=== PATIENT | male | born 1965 | race Caucasian/White ===

== ENCOUNTER 2017-05-16 10:07 | Inpatient (IN) | payer SELFPAY ==
[~2017-05-16] VITALS: Ht 182.9 cm; Wt 67.6 kg
[2017-05-16 10:11] VITALS: BP 127/84
[2017-05-16] MEDS ORDERED: POTA10TE30 PO (10:16)
[2017-05-16] MEDS ORDERED: ATEN25TA7 PO (10:16)
[2017-05-16] MEDS ORDERED: VITB12 PO (10:16)
--- NOTE | 2017-05-16 10:22 | NUR ---
PT AMBULATED TO BED 4.
--- NOTE | 2017-05-16 10:24 | NUR ---
51M BIB SELF C/O BL LOWER ABD PAIN, PRESSURE, NON-RADIATING, 7/10 X 2 DAYS, WORSENING X TODAY; ABDOMEN ROUND, DISTENDED, FIRM, TENDER, ACTIVE BOWEL SOUNDS X 4 QUADRANTS; PT C/O VOMITING COFFEE GROUND EMESIS X YESTERDAY, LMB 05/14/17; PT NOTED WITH HEALED SCAR TO MEDIAL ABDOMEN D/T " MULTIPLE SURGERIES THROUGHOUT THE YEARS"; PT STATES " I JUST GOT OUT OF THE HOSPITAL IN [place] 3 WEEKS AGO. I HAD A SURGERY FOR PERFORATED BOWEL OBSTRUCTION, AND I THINK I MIGHT BE HAVING ANOTHER BOWEL OBSTRUCTION"; PT AA&OX4, BL LUNG SOUNDS CLEAR, RR EVEN/UNLABORED, SKIN IS WARM/DRY/INTACT, STEADY GAIT; PT RESTING IN BED WITH HOB ELEVATED AND IN LOWEST POSITION; POSITIONED FOR COMFORT; ER MD MADE AWARE OF STATUS. WILL CONTINUE TO MONITOR.
[2017-05-16] MEDS ORDERED: ONDANSETRON 4 MG/2 ML VIAL IVP ONE (10:55)
[2017-05-16] MEDS ORDERED: HYDROmorphone PFS 2 MG/ML SYR IVP ONE (10:55)
[2017-05-16 11:34] LABS: BASOPHILS # (AUTO) 0.1 K/uL (0.00-0.22); BASOPHILS % (AUTO) 1.5 % (0.0-2.0); EOSINOPHILS % (AUTO) 0.7 % (0.0-4.0); HEMATOCRIT 27.8 % (36-52); HEMOGLOBIN 8.8 g/dL (12.0-18.0); LYMPHOCYTES # (AUTO) 0.5 K/uL (2.0-11.5); LYMPHOCYTES % (AUTO) 14.8 % (20.5-51.1); MEAN CORPUSCULAR HEMOGLOBIN 23 pg (27-31); MEAN CORPUSCULAR HGB CONC 31 g/dL (33-37); MEAN CORPUSCULAR VOLUME 74 fL (80-94); MONOCYTES # (AUTO) 0.6 K/uL (0.8-1.0); MONOCYTES % (AUTO) 17.4 % (1.7-9.3); NEUTROPHILS # (AUTO) 2.3 K/uL (1.8-7.7); NEUTROPHILS % (AUTO) 65.6 % (42.2-75.2); PLATELET COUNT (AUTO) 205 K/uL (140-450); RED BLOOD CELL COUNT(AUTO) 3.75 MIL/uL (4.20-6.10); RED CELL DISTRIBUTION WIDTH 17.9 % (11.6-13.7); WHITE BLOOD COUNT (AUTO) 3.5 K/uL (4.8-10.8)
--- NOTE | 2017-05-16 11:36 | NUR ---
PT RETURNED FROM CT VIA [facility], ACCOMPANIED BY PHOTOGRAVURE PRESS OPERATOR.
[2017-05-16] MEDS ORDERED: HYDROmorphone 1 MG/ML AMP IVP ONE ×2 (11:45→13:00)
[2017-05-16 12:14] LABS: ALBUMIN 3.4 g/dL (3.4-5.0); ANION GAP 16.4 (8-16); CARBON DIOXIDE 25.9 mmol/L (21-32); CREATININE 0.8 mg/dL (0.7-1.3); POTASSIUM 3.3 mmol/L (3.5-5.1); TOTAL BILIRUBIN 0.4 mg/dL (0.0-1.0)
--- NOTE | 2017-05-16 12:15 | NUR ---
PT APPEARS TO BE RESTING COMFORTABLY IN BED; RR EVEN/UNLABORED; POSITIONED FOR COMFORT; WILL CONTINUE TO MONITOR.
[2017-05-16] MEDS ORDERED: NACL 0.9% 1,000 ML IV ONE (13:15)
[2017-05-16] MEDS ORDERED: NACL 0.9% 1,000 ML IV SCH (13:31)
[2017-05-16] MEDS ORDERED: ACETAMINOPHEN 325 MG TAB PO PRN (13:35)
[2017-05-16] MEDS ORDERED: HYDROcodone/APAP 7.5/325 MG 1 TAB PO PRN (13:35)
[2017-05-16] MEDS ORDERED: ONDANSETRON 4 MG/2 ML VIAL IVP PRN (13:35)
--- NOTE | 2017-05-16 13:56 | NUR ---
Patient will be admitted to care of DR. VALADEZ. Admited to TELEMETRY. Will go to room 119B. Belongings list completed. Report to JAIRO CAREY AT BEDSIDE.
[2017-05-16] MEDS ORDERED: HYDROmorphone PFS 2 MG/ML SYR IVP SCH (14:20)
--- NOTE | 2017-05-16 14:40 | NUR ---
RECEIVED PT ON THE FLOOR VIA ALESSANDRO, PT IS AAOX4, AMBULATORY, IV IS ON THE LEFT BENJAMIN, PATIENT, INTACT, FLUSHING WELL, PT IS ON ROOM AIR, NO S/S OF RESPIRATORY DISTRESS OR DISCOMFORT NOTED, DISCUSSED PLAN OF CARE WITH PT, PT VERBALIZED UNDERSTANDING, ORIENTED PT TO ROOM, SAFETY/FALL PRECAUTIONS ARE IN PLACE, CALL LIGHT IS WITHIN REACH, WILL CONTINUE TO MONITOR.
[2017-05-16 14:41] VITALS: BP 114/78
[2017-05-16 14:43] LABS: CHOL/HDL RATIO 2.3 (1-4.5); FREE T4 (FREE THYROXINE) 0.85 ng/dL (0.76-1.46); MAGNESIUM 1.3 mg/dL (1.8-2.4); PHOSPHORUS 2.8 mg/dL (2.5-4.9); THYROID STIMULATING HORMONE 13.82 uIU/mL (0.34-3.74)
[2017-05-16] MEDS: HYDROmorphone PFS 2 MG/ML SYR IVP SCH ×3 (15:06→21:33)
--- NOTE | 2017-05-16 15:06 | NUR ---
PATIENT AMBULATING AROUND NURSES STATION COMPLAINING OF SEVERE 9/10 ABDOMINAL PAIN. PT STATED HE WANTED HIS PAIN MEDICATION. SPOKE TO DR. LEA, I LET HER KNOW THE DILAUDID WAS NOT DUE UNTIL 1719 BECAUSE HE HAD A 1MG DOSE OF DILAUDID IN ER. PER DR. LEONORA CHOE TO GIVE DILAUDID 2MG NOW.
[2017-05-16 16:00] VITALS: BP 114/74
[2017-05-16] MEDS ORDERED: POTASSIUM CHLORIDE 20% 40 MEQ/15 ML UDC PO SCH (16:30)
[2017-05-16] MEDS ORDERED: MAG SULF 2000 MG/WATER PREMIX 50 ML IV SCH (16:30)
--- NOTE | 2017-05-16 17:19 | NUR ---
PATIENT REFUSED BLOOD CULTURE DRAW AT THIS TIME. PATIENT ALSO REFUSED POTASSIUM LIQUID FORM AND REFUSED NG TUBE TO BE INSERTED BY THE NURSE, PT WANTS TO INSERT NG TUBE HIMSELF. DR. LEA NOTIFIED,
[2017-05-16] MEDS ORDERED: POTASSIUM CHLORIDE 10 MEQ TABER PO SCH (17:30)
--- NOTE | 2017-05-16 18:02 | NUR ---
SPECIMEN CUP PLACED ON PATIENT TABLE LOC AWAKE AND ALERT EDUCATION PROVIDED TO PATIENT WITH ACKNOWLEDGEMENT ON SPUTUM COLLECTION
--- NOTE | 2017-05-16 18:27 | NUR ---
NG TUBE INSERTED, PT TOLERATED WELL.
[2017-05-16] MEDS ORDERED: SODIUM PHOSPHATE 118 ML ENEM RC SCH (18:45)
[2017-05-16] MEDS: POTASSIUM CHL 30 MEQ/ D5-1/2NS 1,000 ML IV SCH (19:20)
--- NOTE | 2017-05-16 19:27 | NUR ---
ENDORSED PT TO COMPLIANCE INVESTIGATOR NURSE FOR CONTINUITY OF CARE, PT STABLE AT THIS TIME.
--- NOTE | 2017-05-16 19:28 | NUR ---
RECEIVED FROM AM RN IN BED AWAKE AND ALERT. ABLE TO VERBALIZE NEEDS WELL. NO SOB. NGT IN PLACE TO INTERMITTENT SUCTION. PT. ABLE TO WALK WELL. ROM X 4. A/O X 4. CLEAR SPEECH. CARE PLANS FOR THE NIGHT DISCUSSED WITH HIM. PER AM RN PT. REFUSED TO HAVE ANYTHING DONE /TESTS WITH HIM TONIGHT. STATES HE ONLY WANTS HIS PAIN RELIEVER FOR NOW. MD COWART AWARE OF PT.S DESIRE. DX. ILEUS AND PANCREATITIS. AFEBRILE.
--- NOTE | 2017-05-16 19:44 | NUR ---
INFORMED RESIDENT ON DUTY THAT PT. REFUSED TO HAVE HIS IVF CHANGED WITH POTASSIUM ON IT. STATED IN LOUD VOICE " NO, YOU ARE NOT INFUSING THAT ON ME. NO TO POTASSIUM IV. I ALREADY HAD P.O. K EARLIER. ENOUGH. " REFUSED STATING THAT HE DOES NOT WANT HIS IVF LINE BUSTED AND THAT HE KNOWS THE SCENARIO ABOUT IT. RESIDENT MD STATED "OK" IF HE REFUSES THEN DO NOT GIVE .
[2017-05-16 19:48] VITALS: BP 114/76
--- NOTE | 2017-05-16 20:59 | NUR ---
PT. WALKING A LOT IN THE HALLWAY. PT. SMILING AND REMINDING NURSE THAT HE HAS DILAUDID IVP DUE AT 2129. REFUSED TO HAVE SEQUENTIALS IN PLACE. PT. GETS EASILY UPSET AND RAISES VOICE IF GIVEN REMINDERS OR EDUCATION RE : MEDICATIONS ORDERED.
[2017-05-16] MEDS: BISACODYL 10 MG SUPP RC SCH ×2 (21:00→21:33)
[2017-05-16] MEDS ORDERED: DOCUSATE SODIUM 100 MG GELCAP PO SCH (21:00)
--- NOTE | 2017-05-16 21:38 | NUR ---
PT. IN GOOD MOOD AT THIS TIME RT MEDICATED WITH DILAUDID 2 MG IVP. PT. REFUSED DULCOLAX SUPPOSITORY. "NO, I WILL GO NUMBER 2 IN A LITTLE WHILE. ". EXPLAINED REASON FOR IT. "NO" . INFORMED RESIDENT MD. AWARE.
[2017-05-17 00:32] VITALS: BP 122/80
[2017-05-17] MEDS: HYDROmorphone PFS 2 MG/ML SYR IVP SCH ×4 (00:36→08:59)
--- NOTE | 2017-05-17 00:53 | NUR ---
PT. STATED HE WILL NOW SLEEP RT HE HAS HIS PAIN RELIEVER. ENCOURAGED TO SLEEP . CALL LIGHT WITH IN REACH AT THIS TIME.
--- NOTE | 2017-05-17 03:21 | NUR ---
PT. MEDICATED EARLIER WITH PAIN RELIEVER DILAUDID RT GETTING UPSET AND SHOUTING ABOUT OTHER COMPLAINTS. STATED THAT LIGHTS IN HIS ROOM IS NOT WORKING, BED IS MOVING . PT. RELAXED WHEN OFFERED TO GIVE HIS PAIN RELIEVER. CHARGE NURSE AWARE AND TILE SETTER APPRENTICE AWARE.
[2017-05-17 03:30] VITALS: BP 110/73
--- NOTE | 2017-05-17 04:21 | NUR ---
SLEEPING AT THIS TIME. AWARE THAT THE NEXT DOSE IS AT 0630 REMINDED.
--- NOTE | 2017-05-17 05:00 | NUR ---
PT. WALKING AROUND THE UNIT. ABLE TO VERBALIZE NEEDS WELL. PT. SMILING MOST OF TIMES. "WAITING FOR MY MEDICATION DILAUDID " REMINDED DUE AT 0630. PT. UNDERSTANDS. CONTINUES ON WALKING HALLWAY.
[2017-05-17] MEDS: POTASSIUM CHL 30 MEQ/ D5-1/2NS 1,000 ML IV SCH (05:05)
--- NOTE | 2017-05-17 06:31 | NUR ---
OUTPUT AT THIS TIME FROM NGT 100 ML IN YELLOWISH COLOR. PT. REFUSE TO LISTEN ABOUT WALKING AND DISCONNECTING NGT FROM SUCTION. PT. STATES "I KNOW WHAT I AM DOING. DOING THIS FOR A LONG TIME. "
[2017-05-17] MEDS ORDERED: LEVOTHYROXINE 0.025 MG TAB PO SCH (07:25)
--- NOTE | 2017-05-17 07:38 | NUR ---
ENDORSED AWAKE , ALERT AND WALKING AROUND.
--- NOTE | 2017-05-17 07:39 | NUR ---
RECEIVED REPORT FROM HOME HEALTH CARE CASE MANAGER NURSE. PATIENT WALKING AROUND IN [facility] HALLWAYS WITH STEADY GAIT. NO DISTRESS NOTED. DENIES ANY PAIN AT THIS TIME. AAOX4, CALM, COOPERATIVE, SKIN COLOR APPROPRIATE TO ETHNICITY, WARM TO TOUCH. ABDOMEN SOFT. LUNGS CTA ON ALL LOBES. IV SITE INTACT, PATENT, AND INFUSING IVF PER ORDERS. REVIEWED PLAN OF CARE WITH PATIENT. PATIENT VERBALIZED UNDERSTANDING. SAFETY MEASURES IN PLACE, CALL LIGHT WITHIN REACH. WILL CONTINUE TO MONITOR.
[2017-05-17] MEDS ORDERED: LEVOTHYROXINE 0.025 MG, LEVOTHYROXINE 0.1 MG PO SCH ×2 (07:54)
[2017-05-17 08:00] VITALS: BP 118/76
[2017-05-17] MEDS ORDERED: HYDROmorphone PFS 2 MG/ML SYR IVP PRN (09:00)
[2017-05-17] MEDS ORDERED: NACL 0.9% 1,000 ML IV SCH (09:00)
[2017-05-17 09:08] LABS: TRANSFERRIN 315 mg/dL (200-370)
--- NOTE | 2017-05-17 09:10 | NUR ---
PATIENT SITTING IN BED WATCHING TV. NO DISTRESS NOTED. COMPLAINTS OF 7/10 PAIN, WILL MEDICATE WITH DILUADID PER ORDERS. OTHER SCHEDULED MEDICATIONS DUE GIVEN. SAFETY MEASURES IN PLACE, CALL LIGHT WITHIN REACH. WILL CONTINUE TO MONITOR.
--- NOTE | 2017-05-17 09:11 | NUR ---
PATIENT HAS BEEN SCREENED AND CATEGORIZED MODERATE NUTRITION RISK. PATIENT WILL BE SEEN WITHIN 3-5 DAYS OF ADMISSION. 05/18/17-05/20/[address]
--- NOTE | 2017-05-17 11:30 | NUR ---
PATIENT WISHES TO GO AMA BECAUSE HE REPORTS THAT HE ALREADY HAS HAD A BOWEL MOVEMENT THIS MORNING AND THERE IS NO REASON FOR HIM TO STAY ANY LONGER. DR. LEA NOTIFIED AND MADE AWARE. MD AT BEDSIDE EXPLAINING TO PATIENT THE RISKS OF LEAVING AMA. PATIENT VERBALIZED COMPLETE UNDERSTANDING AND WISHES TO LEAVE AMA. AMA CONSENT FORM SIGNED BY PATIENT AND MD. ALL BELONGINGS WITH PATIENT. PATIENT WANTS TO SPEAK WITH SS FOR A MAP TO THE TRAIN STATION. NOTIFIED SS AND SHE WILL COME SEE PATIENT. WILL CONTINUE TO MONITOR.
--- NOTE | 2017-05-17 12:00 | NUR ---
PATIENT SPOKE WITH SS AND IS READY TO GO AMA. IV SITE REMOVED WITH MINIMAL BLOOD AND LUMEN COMPLETELY INTACT. ID BANDS REMOVED. NGTUBE REMOVED, PATIENT TOLERATED PROCEDURE WELL. [employer] CALLED PER PATIENT REQUEST AND IS AT FRONT LOBBY WAITING FOR PATIENT. ESCORTED PATIENT DOWN TO LOBBY VIA AMBULATION WITH STEADY GAIT. PATIENT LEFT AMA AT THIS TIME IN STABLE CONDITION. ALL BELONGINGS WITH PATIENT.
[2017-05-17 12:23] LABS: FOLIC ACID > 20.00 ng/mL (>3.0)
[2017-05-17 17:25] LABS: FERRITIN 315 ng/mL (30 - 400)
[2017-05-18] MEDS ORDERED: LEVOTHYROXINE 0.025 MG, LEVOTHYROXINE 0.1 MG PO SCH ×2 (06:30)
== END 2017-05-17 12:00 | disposition left against medical advice (07) | DRG 388 ==
LOC: MED 10:07 → MTU 13:31
PROVIDERS: ADMIT Family Medicine Sports Medicine; ATTEND Family Medicine Sports Medicine
DX: K56.600 Partial intestinal obstruction, unspecified as to cause (principal); K85.90 Acute pancreatitis without necrosis or infection, unspecified; E83.42 Hypomagnesemia; E87.6 Hypokalemia; F17.210 Nicotine dependence, cigarettes, uncomplicated; D50.9 Iron deficiency anemia, unspecified; F43.10 Post-traumatic stress disorder, unspecified; I10 Essential (primary) hypertension; Z88.5 Allergy status to narcotic agent; Z88.8 Allergy status to other drugs, medicaments and biological substances; Z85.038 Personal history of other malignant neoplasm of large intestine; Z85.118 Personal history of other malignant neoplasm of bronchus and lung; Z85.47 Personal history of malignant neoplasm of testis
CPT/HCPCS: 36415; 71045; 74018; 80053; 82150; 82607; 82728; 82746; 83036; 83540; 83690; 83735; 83880; 84100; 84439; 84443; 84484; 85025; 85045; 85610; 85730; 87070; 87205; 93005; 96374; 96375; 96376; 99285; J1170; J2405; J3475; J7030; Q0092